=== PATIENT | female | born 1945 | race Caucasian/White ===

== ENCOUNTER 2016-09-12 19:44 | Emergency (ER) | payer BC | END 2016-09-12 20:25 | disposition home or self-care (01) | LOC: ER 19:44 | PROC: 2W3SXYZ Immobilization of Right Foot using Other Device (ICD-10-PCS; principal; 2016-09-12) | DX: S92.331A Displaced fracture of third metatarsal bone, right foot, initial encounter for closed fracture (principal); S92.341A Displaced fracture of fourth metatarsal bone, right foot, initial encounter for closed fracture; E78.5 Hyperlipidemia, unspecified; F32.9 Major depressive disorder, single episode, unspecified; F41.9 Anxiety disorder, unspecified; Z88.8 Allergy status to other drugs, medicaments and biological substances; W01.0XXA Fall on same level from slipping, tripping and stumbling without subsequent striking against object, initial encounter | CPT/HCPCS: 73630-RT; 99283 ==